=== PATIENT | female | born 1960 | race Caucasian/White ===

== ENCOUNTER → 2017-01-17 | Day surgery (SDC) | payer BC ==
[~2017-01-17] MED LIST: DUEXIS 800-26.1 EACH PO; MULTI VITAMIN1 EACH PO; NEXIUM PO; ZOLOFT50 MG PO
--- NOTE | ~2017-01-17 | OR ---
Unit #: [id number] #: [id number] Patient: SARAH PETIT [id number] [address] [place], [place] [address] [id number] O MR#: [id number] NAME: SARAH PETIT ROOM: Date of Procedure: 01/17/2017 Admission Date: 01/17/2017 Surgeon: Bk Vera M.D. : 1960 Attending Physician: Bk Vera M.D. Primary Care Physician: Rigoberto Garcia M.D. [facility] OPERATIVE NOTE PROCEDURE PERFORMED Lumbar epidural steroid injection under x-ray guided needle placement with provider administered conscious sedation. PREOPERATIVE DIAGNOSES 1. Acute lumbar radiculitis. 2. Spinal stenosis, lumbosacral spine. 3. Degenerative joint disease, lumbosacral spine. 4. Degenerative disk disease, lumbosacral spine. INDICATIONS FOR PROCEDURE The patient presents today with longstanding history of intermittent left-sided lumbar radicular pain, which over the years has become increasing in severity duration and frequency, and has reached the point now where over the course for the past few months, it has become almost chronic in nature. Recently, it has begun to advance in a crescendo pattern and it is felt to respond to usual ongoing conservative measures. She presents today requesting an epidural steroid injection. After discussing risks and benefits of proceeding today with a lumbar approach epidural steroid injection, the patient agreed this would be the appropriate course of action. DESCRIPTION OF PROCEDURE She was then taken to the operating room, where she was prepped and draped in sterile manner. Standard monitors were applied. She was sedated with 2 mg of IV Versed and lumbar epidural space accessed at the L4-L5 level using loss of resistance technique and x-ray guidance. Needle placement was confirmed with injection of 2 mL of Omnipaque. There was good superior and inferior flow to this L4-L5 needle placement. Following successful needle placement confirmation, the patient received an injectate containing 2 mL normal saline, 2 mL of 0.25% bupivacaine, and 80 mg of methylprednisolone. She tolerated this procedure well. She was discharged home with followup instructions, which include return to this clinic on 01/31/2017. At that point, she will most likely receive a dual needle L5-S1, L3-L4 injection. Dictated by... Main Goldberg/lobo TD: 01/17/2017 21:21 Unit #: [id number] #: [id number] Patient: SARAH PETIT JOB #: [id number] CC: Pedro Daniel M.D. [facility]ENTER OPERATIVE NOTE Page 1 of 1 X Rigoberto Vera MD PROCEDURE OPERATIVE NOTE
== END | disposition home or self-care (01) ==
LOC: CCSC 08:58
DX: M51.17 Intervertebral disc disorders with radiculopathy, lumbosacral region (principal); M48.07 Spinal stenosis, lumbosacral region
CPT/HCPCS: J1040; J2250

== ENCOUNTER → 2017-01-31 | Day surgery (SDC) | payer BC ==
--- NOTE | ~2017-01-31 | OR ---
Unit #: [id number] #: [id number] Patient: SARAH PETIT [id number] [address] [address] [id number] O MR#: [id number] NAME: SARAH PETIT ROOM: Date of Procedure: 01/31/2017 Admission Date: 01/31/2017 Surgeon: Bk Vera M.D. : 1960 Attending Physician: Rigoberto Vera Primary Care Physician: Rigoberto Garcia M.D. [facility] OPERATIVE NOTE NAME OF PROCEDURE Lumbar epidural steroid injection under x-ray guided needle placement with provider administered conscious sedation. PREOPERATIVE DIAGNOSES 1. Acute lumbar radiculitis. 2. Spinal stenosis, lumbosacral spine. 3. Degenerative joint disease, lumbosacral spine. 4. Degenerative disk disease, lumbosacral spine. INDICATIONS FOR PROCEDURE The patient presents today status post one previous lumbar approach epidural steroid injection for an acute radiculitis, which had failed to respond to conservative therapy. She states she got great results to almost complete resolution of her pain. Initially, however, over the course of intervening time between her initial visit and today, she had return of her pain in a crescendo pattern, which again failed to respond to conservative measures and has advanced to the point that is negatively impacting her life and she presents today requesting a second epidural steroid injection. After discussing risks and benefits of proceeding today with second epidural steroid injection utilizing dual needle access technique, the patient agreed this would be the appropriate course of action. DESCRIPTION OF PROCEDURE She was then taken to the operating room, where she was prepped and draped in a sterile manner. Standard monitors were applied. She was sedated initially with 2 mg of IV Versed and required an additional 2 mg of Versed throughout the duration of the procedure. Lumbar epidural space was accessed at the L5-S1 and L3-L4 levels using loss of resistance technique and x-ray guidance. Needle placement was confirmed with the injection of 2 mL of Omnipaque at each location. There was good superior and inferior flow at each needle placement location. Following successful needle placement and confirmation which required an x-ray time of 9 seconds, the patient received an injectate containing 4 mL of normal saline, and 40 mg of methylprednisolone at each site for a total injectate volume today of 8 mL of normal saline and 80 mg of methylprednisolone. She was discharged home with followup instructions, which include return to the clinic as early as 05/09 if we could be of further service to her. Dictated by... Unit #: [id number] #: [id number] Patient: SARAH PETIT Main Goldberg/lobo TD: 01/31/2017 10:04 JOB #: [id number] CC: Pedro Daniel M.D. [facility] OPERATIVE NOTE Page 1 of 1 X Rigoberto Vera MD X PROCEDURE OPERATIVE NOTE
== END | disposition home or self-care (01) ==
LOC: CCSC 08:28
DX: M51.17 Intervertebral disc disorders with radiculopathy, lumbosacral region (principal); M47.27 Other spondylosis with radiculopathy, lumbosacral region; M48.07 Spinal stenosis, lumbosacral region
CPT/HCPCS: J1030; J2250